=== PATIENT | female | born 1985 | race American Indian/Alaskan Native ===

== ENCOUNTER 2017-05-10 23:53 | Observation (INO) | payer MEDICARE, MEDICAID ==
[2017-05-10 23:55] VITALS: BMI 29.9
[2017-05-11 00:32] VITALS: TEMP 98.5
--- NOTE | 2017-05-11 00:48 | ED PDOC ---
Arrival/HPI - General Chief Complaint: Alcohol Ingestion Time Seen by Provider: 05/11/17 00:11 Historian: Patient - History of Present Illness Narrative History of Present Illness (Text): 05/11/17 00:30 India Mckay is a 31 year old female who presents to the emergency department via ambulance for alcohol intoxication. Patient admits to drinking alcohol earlier today. History and ROS limited due to intoxication. Symptom Onset: Gradual Severity Level: Mild Activities at Onset: Light Context: Home Past Medical History - Provider Review Nursing Documentation Reviewed: Yes - Travel History Have you recently traveled outside [place] w/in the past 3 mons?: Yes - Infectious Disease Hx of Infectious Diseases: None - Cardiac Hx Hypertension: Yes - Psychiatric Hx Bipolar Disorder: Yes Hx Substance Use: No - Anesthesia Hx Anesthesia: No Family/Social History - Physician Review Nursing Documentation Reviewed: Yes Family/Social History: No Known Family HX Smoking Status: Former Smoker Hx Alcohol Use: Yes Hx Substance Use: No Allergies/Home Meds Allergies/Adverse Reactions: Allergies No Known Allergies Allergy (Verified 10/11/15 11:20) Home Medications: Home Meds Medication Instructions Recorded Confirmed Benztropine [Benztropine Mesylate] 1 mg PO DAILY 10/11/15 05/11/17 [place] Carbonate [[place] 300 mg PO BID 10/11/15 05/11/17 Carbonate 300MG] traZODone [Desyrel] 100 mg PO DAILY 10/11/15 05/11/17 Review of Systems - Review of Systems Systems not reviewed;Unavailable: Intoxicated Physical Exam Vital Signs Reviewed: Yes Vital Signs Temp Pulse Resp BP Pulse Ox 05/11/17 04:00 76 16 114/76 99 05/11/17 02:00 86 16 100 05/11/17 00:31 98.5 F 95 H 18 105/60 94 L Temperature: Afebrile Blood Pressure: Normal Pulse: Regular Respiratory Rate: Normal Appearance: Positive for: Comfortable Pain Distress: None Mental Status: Positive for: Alert and Oriented X 3 - Systems Exam Head: Present: Atraumatic, Normocephalic Pupils: Present: PERRL Conjunctiva: Present: Normal Mouth: Present: Moist Mucous Membranes Neck: Present: Normal Range of Motion Respiratory/Chest: Present: Clear to Auscultation, Good Air Exchange. No: Respiratory Distress, Accessory Muscle Use Cardiovascular: Present: Regular Rate and Rhythm, Normal S1, S2. No: Murmurs Abdomen: Present: Normal Bowel Sounds. No: Tenderness, Distention, Peritoneal Signs Back: Present: Normal Inspection Upper Extremity: Present: Normal Inspection. No: Cyanosis, Edema Lower Extremity: Present: Normal Inspection. No: Edema Neurological: Present: GCS=15, CN II-XII Intact, Speech Normal Skin: Present: Warm, Dry, Normal Color. No: Rashes Psychiatric: Present: Alert, Oriented x 3, Intoxicated Medical Decision Making ED Course and Treatment: 05/11/17 0:30 Impression: A 31 year old female who presents to the emergency department complaining for alcohol intoxication. Plan: -- Labs --Reassess and disposition Progress Notes: 05/11/17 00:[address] patient on EDObs for alcohol intoxication. ED OBSERVATION Discharge: Yes Date of observation admission: 05/11/17 Time of observation admission: 00:30 - Observation admission statement Patient is being placed in observation because:: Alcohol intoxication - Goals of Observation Goals of observation are:: pending sobriety - Progress Note Progress Note: 05/11/17 02:30 Patient sleeping comfortably with stable vitals. 05/11/17 04:30 Patient resting in the emergency room with no new complaints. 05/11/17 06:00 Patient is awake, alert, oriented X3. Patient ambulatory in the emergency department with steady gait. Stable for discharge. - Scribe Statement The provider has reviewed the documentation as recorded by the Qiana Macias Provider Attestation: All medical record entries made by the Qiana were at my direction and personally dictated by me. I have reviewed the chart and agree that the record accurately reflects my personal performance of the history, physical exam, medical decision making, and the department course for this patient. I have also personally directed, reviewed, and agree with the discharge instructions and disposition. Disposition/Present on Arrival - Present on Arrival Any Indicators Present on Arrival: No History of DVT/PE: No History of Uncontrolled Diabetes: No Urinary Catheter: No History of Decub. Ulcer: No History Surgical Site Infection Following: None - Disposition Have Diagnosis and Disposition been Completed?: Yes Diagnosis: Alcohol intoxication Disposition: HOME/ ROUTINE Disposition Time: 06:00 Patient Plan: Discharge Condition: STABLE
[2017-05-11 02:41] LABS: HEMOGLOBIN 13.4 g/dL (12.0-16.0); MEAN CELL VOLUME 87.6 fl (80.0-105.0); MEAN CORPUSCULAR HEMOGLOBIN 29.6 pg (25.0-35.0); MEAN CORPUSCULAR HGB CONC 33.8 g/dl (31.0-37.0); MEAN PLATELET VOLUME 9.7 fl (7.0-11.0); RBC 4.52 10^6/uL (3.5-6.1); RED CELL DISTRIBUTION WIDTH 13.7 % (11.5-14.5); WHITE BLOOD COUNT 12.5 10^3/ul (4.5-11.0)
[2017-05-11 02:45] LABS: BLOOD UREA NITROGEN 9 mg/dL (7-21); CALCIUM 8.9 mg/dL (8.4-10.5); GFR AFRICAN-AMERICAN > 60; GFR NON-AFRICAN AMERICAN > 60
[2017-05-11 05:07] VITALS: RESP 16
[2017-05-11 06:14] VITALS: BP 114/76; PULSE 76; O2SAT 99
== END 2017-05-11 06:21 | disposition home or self-care (01) ==
LOC: ED 23:53 → EROBSV 05-11 00:30
PROVIDERS: ADMIT Emergency Medicine; ATTEND Emergency Medicine
DX: F10.129 Alcohol abuse with intoxication, unspecified (principal); Y90.6 Blood alcohol level of 120-199 mg/100 ml
CPT/HCPCS: 80048; 85027; 99284; G0378; G0480